=== PATIENT | male | born 1925 | race Caucasian/White ===

== ENCOUNTER 2017-01-10 23:07 | Inpatient (IN) | payer MEDICARE, MEDICAID ==
[~2017-01-10] VITALS: Ht 170.2 cm; Wt 63.0 kg
[2017-01-11] MEDS ORDERED: SODIUM CHLORIDE 0.9% 1,000 ML IV ONE (00:17)
[2017-01-11] MEDS ORDERED: ONDANSETRON HCL 4MG/2ML VIAL IV STA (00:17)
[2017-01-11 01:05] LABS: HEMATOCRIT. 36.6 % (42.0-52.0); HEMOGLOBIN. 12.3 g/dL (14.0-18.0); MEAN CORPUSCULAR HEMOGLOBIN 29.2 pg (28.0-32.0); MEAN CORPUSCULAR VOLUME 86.8 fL (80.0-94.0); PLATELET 222 x1000/uL (130-400); RED BLOOD CELL COUNT 4.22 mill/uL (4.7-6.1); RED CELL DISTRIBUTION WIDTH 15.7 % (11.6-14.6)
[2017-01-11] MEDS ORDERED: MAGNESIUM/ALUMINUM HYDROXIDE/SIMETHICONE 30ML UDC PO PRN (01:15)
[2017-01-11] MEDS ORDERED: DIPHENHYDRAMINE 50MG/ML VIAL IV PRN (01:15)
[2017-01-11] MEDS ORDERED: LORAZEPAM 2MG/ML CPJ IV PRN (01:15)
[2017-01-11] MEDS ORDERED: IPRATROPIUM/ALBUTEROL 0.5-3(2.5)MG/3ML NEB INH PRN (01:15)
[2017-01-11] MEDS ORDERED: DOCUSATE SODIUM 100MG CAPSULE PO PRN (01:15)
[2017-01-11] MEDS ORDERED: NA PHOS,M-B/NA PHOS,DI-BA ENEMA 118ML PR PRN (01:15)
[2017-01-11] MEDS ORDERED: GUAIFENESIN 200MG/10ML SUGAR FREE UDC PO PRN (01:15)
[2017-01-11] MEDS ORDERED: ONDANSETRON HCL 4MG/2ML VIAL IV PRN (01:15)
[2017-01-11] MEDS ORDERED: CLONIDINE 0.1MG TABLET PO PRN (01:15)
[2017-01-11] MEDS ORDERED: HYDROCODONE/ACETAMINOPHEN 5/325MG TABLET PO PRN (01:15)
[2017-01-11] MEDS ORDERED: ACETAMINOPHEN 325MG TABLET PO PRN (01:15)
[2017-01-11 01:17] LABS: INR 1.4; PROTHROMBIN TIME 14.7 sec
[2017-01-11 01:19] LABS: CARBON DIOXIDE 32 mEq/L (21-32); CHLORIDE 101 mEq/L (98-107); TROPONIN I 0.07 ng/mL (0.00-0.04)
[2017-01-11 01:55] LABS: CLARITY URINE CLEAR (CLEAR); COLOR URINE DARK YELLOW (YELLOW); GLUCOSE URINE NEGATIVE (NEGATIVE); KETONES URINE TRACE (NEGATIVE); LEUKOCYTE ESTERASE URINE TRACE (NEGATIVE); NITRITE URINE NEGATIVE (NEGATIVE); OCCULT BLOOD URINE NEGATIVE (NEGATIVE); PROTEIN URINE NEGATIVE (NEGATIVE); SPECIFIC GRAVITY URINE 1.015 (1.005-1.030)
[2017-01-11 08:00] VITALS: BP 108/62
[2017-01-11 08:07] LABS: PLATELET ESTIMATE NORMAL
[2017-01-11 09:00] VITALS: BP 106/92
[2017-01-11] MEDS: SODIUM CHLORIDE 0.45% 1,000 ML IV SCH ×2 (09:00→22:20)
[2017-01-11] MEDS: ENOXAPARIN 40MG/0.4ML SYR SUBCUT SCH (09:00)
[2017-01-11] MEDS ORDERED: DEXTROSE 50% WATER 50ML SYRINGE IV PRN (09:45)
[2017-01-11 12:00] VITALS: BP 113/58
[2017-01-11] MEDS: BLOOD SUGAR DIAGNOSTIC STRIP TEST SCH ×3 (12:20→21:15)
[2017-01-11] MEDS: INSULIN LISPRO 100 UNITS/ML SUBCUT SCH ×3 (12:43→21:00)
[2017-01-11] MEDS ORDERED: CIPR-263 PO (15:12)
[2017-01-11] MEDS ORDERED: LISI-186 PO (15:12)
[2017-01-11] MEDS ORDERED: CARV6.2548 PO (15:12)
[2017-01-11] MEDS ORDERED: AMOX125S8 PO (15:12)
[2017-01-11] MEDS ORDERED: FURO40TA5 PO (15:12)
[2017-01-11] MEDS ORDERED: AMIODARONE (15:12)
[2017-01-11] MEDS ORDERED: TAMS0.4C31 PO (15:12)
[2017-01-11] MEDS ORDERED: ASPI-1159 PO (15:12)
[2017-01-11] MEDS ORDERED: AMIODARONE HCL PO (15:12)
[2017-01-11] MEDS ORDERED: ONDA8TAB6 PO (15:12)
[2017-01-11] MEDS ORDERED: METO-293 PO (15:12)
[2017-01-11] MEDS ORDERED: ATOR80TA PO (15:12)
[2017-01-11] MEDS ORDERED: OMEP20CA10 PO (15:12)
[2017-01-11] MEDS ORDERED: ONDANSETRON HCL 8MG TABLET PO SCH (15:45)
[2017-01-11] MEDS ORDERED: METOCLOPRAMIDE HCL 10MG TABLET PO PRN (15:45)
[2017-01-11] MEDS ORDERED: AMIODARONE HCL 200 MG PO SCH (15:45)
[2017-01-11 16:00] VITALS: BP 112/46
[2017-01-11] MEDS ORDERED: CIPROFLOXACIN HCL PO SCH (17:00)
[2017-01-11] MEDS ORDERED: POTASSIUM CHLORIDE INJ 40 MEQ in DEXT 5% WATER 250 ML IV NR (17:00)
[2017-01-11] MEDS ORDERED: LEVOFLOXACIN 500MG TABLET PO SCH (17:00)
[2017-01-11 20:00] VITALS: BP 105/65
[2017-01-11] MEDS: CARVEDILOL 6.25 MG TABLET PO SCH (20:20)
[2017-01-11] MEDS ORDERED: MEDICATION NOT ON FORMULARY EA (Atorvastatin Calcium (Lipitor) 1 TAB) PO SCH (21:00)
[2017-01-11] MEDS: AMIODARONE HCL 200 MG TABLET PO SCH (21:17)
[2017-01-11] MEDS: ATORVASTATIN CALCIUM 40MG TABLET PO SCH (21:25)
[2017-01-11] MEDS: AMOXICILLIN 500 MG CAPSULE PO SCH (21:25)
[2017-01-11] MEDS ORDERED: POTASSIUM CHLORIDE 20MEQ TABLET SR PO NR (21:45)
[2017-01-12] VITALS: BP 109/57
[2017-01-12 04:00] VITALS: BP 113/55
[2017-01-12] MEDS: AMIODARONE HCL 200 MG TABLET PO SCH ×3 (05:12→23:19)
[2017-01-12] MEDS: OMEPRAZOLE 20MG CAPSULE EXTENDED RELEASE PO SCH (06:26)
[2017-01-12] MEDS: BLOOD SUGAR DIAGNOSTIC STRIP TEST SCH ×4 (06:33→21:01)
[2017-01-12] MEDS: INSULIN LISPRO 100 UNITS/ML SUBCUT SCH ×4 (07:50→21:00)
[2017-01-12 08:00] VITALS: BP 101/43
[2017-01-12] MEDS ORDERED: AMOXICILLIN 125 MG/5 ML 100 ML BOTTLE PO SCH (09:00)
[2017-01-12] MEDS: FUROSEMIDE 40MG TABLET PO SCH (09:00)
[2017-01-12] MEDS: LISINOPRIL 5MG TABLET PO SCH (09:00)
[2017-01-12] MEDS: CARVEDILOL 6.25 MG TABLET PO SCH ×2 (09:00→20:59)
[2017-01-12] MEDS: AMOXICILLIN 500 MG CAPSULE PO SCH ×2 (10:17→20:59)
[2017-01-12] MEDS: ASPIRIN 81MG EC TABLET PO SCH (10:20)
[2017-01-12] MEDS: ENOXAPARIN 40MG/0.4ML SYR SUBCUT SCH (10:23)
[2017-01-12] MEDS: SODIUM CHLORIDE 0.45% 1,000 ML IV SCH (11:40)
[2017-01-12 12:00] VITALS: BP 102/63
[2017-01-12] MEDS ORDERED: ONDANSETRON HCL 4MG TABLET PO PRN (15:45)
[2017-01-12 16:00] VITALS: BP 118/68
[2017-01-12] MEDS: LEVOFLOXACIN 250MG TABLET PO SCH (17:21)
[2017-01-12 20:33] VITALS: BP 111/61
[2017-01-12] MEDS ORDERED: TAMSULOSIN HCL 0.4MG SR CAPSULE PO SCH (21:00)
[2017-01-12] MEDS: ATORVASTATIN CALCIUM 40MG TABLET PO SCH (21:01)
[2017-01-13] VITALS (7 sets, daily range): BP systolic 90–130; BP diastolic 49–74
[2017-01-13] MEDS: SODIUM CHLORIDE 0.45% 1,000 ML IV SCH ×2 (01:00→14:20)
[2017-01-13] MEDS: AMIODARONE HCL 200 MG TABLET PO SCH ×2 (06:00→13:41)
[2017-01-13 06:24] LABS: HEMATOCRIT. 34.9 % (42.0-52.0); MEAN CORPUSCULAR HEMOGLOBIN 29.7 pg (28.0-32.0); MEAN CORPUSCULAR VOLUME 86.5 fL (80.0-94.0); MEAN PLATELET VOLUME 8.6 fl (7.4-10.4); PLATELET 218 x1000/uL (130-400); RED BLOOD CELL COUNT 4.03 mill/uL (4.7-6.1); RED CELL DISTRIBUTION WIDTH 16.4 % (11.6-14.6)
[2017-01-13] MEDS: OMEPRAZOLE 20MG CAPSULE EXTENDED RELEASE PO SCH (07:10)
[2017-01-13] MEDS: BLOOD SUGAR DIAGNOSTIC STRIP TEST SCH ×3 (07:10→17:20)
[2017-01-13] MEDS: INSULIN LISPRO 100 UNITS/ML SUBCUT SCH ×3 (07:50→17:50)
[2017-01-13 09:52] LABS: PLATELET ESTIMATE NORMAL
[2017-01-13] MEDS: FUROSEMIDE 40MG TABLET PO SCH (09:58)
[2017-01-13] MEDS: CARVEDILOL 6.25 MG TABLET PO SCH (09:58)
[2017-01-13] MEDS: LISINOPRIL 5MG TABLET PO SCH (09:58)
[2017-01-13] MEDS: AMOXICILLIN 500 MG CAPSULE PO SCH (09:58)
[2017-01-13] MEDS: ASPIRIN 81MG EC TABLET PO SCH (09:59)
[2017-01-13] MEDS: ENOXAPARIN 40MG/0.4ML SYR SUBCUT SCH (10:01)
[2017-01-13] MEDS: LEVOFLOXACIN 250MG TABLET PO SCH (12:47)
[2017-01-13] MEDS ORDERED: POTASSIUM CHLORIDE 20MEQ TABLET SR PO NR (14:45)
[2017-01-14] MEDS ORDERED: FAMOTIDINE 20MG TABLET PO SCH (09:00)
== END 2017-01-13 20:26 | disposition home or self-care (01) | DRG 640 ==
LOC: ER 23:16 → 6EST 01-11 01:15 → 6WST 01-11 14:43
PROVIDERS: ADMIT Internal Medicine; ATTEND Internal Medicine
DX: E86.0 Dehydration (principal); G93.40 Encephalopathy, unspecified; E43 Unspecified severe protein-calorie malnutrition; R65.11 Systemic inflammatory response syndrome (SIRS) of non-infectious origin with acute organ dysfunction; I13.0 Hypertensive heart and chronic kidney disease with heart failure and stage 1 through stage 4 chronic kidney disease, or unspecified chronic kidney disease; I42.9 Cardiomyopathy, unspecified; E11.42 Type 2 diabetes mellitus with diabetic polyneuropathy; I25.10 Atherosclerotic heart disease of native coronary artery without angina pectoris; N18.9 Chronic kidney disease, unspecified; G89.4 Chronic pain syndrome; E78.5 Hyperlipidemia, unspecified; E11.319 Type 2 diabetes mellitus with unspecified diabetic retinopathy without macular edema; E11.22 Type 2 diabetes mellitus with diabetic chronic kidney disease; I50.9 Heart failure, unspecified; F03.90 Unspecified dementia, unspecified severity, without behavioral disturbance, psychotic disturbance, mood disturbance, and anxiety; E78.00 Pure hypercholesterolemia, unspecified; D72.829 Elevated white blood cell count, unspecified; K76.0 Fatty (change of) liver, not elsewhere classified; E87.6 Hypokalemia; E87.8 Other disorders of electrolyte and fluid balance, not elsewhere classified; R91.8 Other nonspecific abnormal finding of lung field; F41.9 Anxiety disorder, unspecified; K59.00 Constipation, unspecified; Z79.4 Long term (current) use of insulin; Z79.899 Other long term (current) drug therapy; Z86.73 Personal history of transient ischemic attack (TIA), and cerebral infarction without residual deficits; Z68.21 Body mass index [BMI] 21.0-21.9, adult
CPT/HCPCS: 36415; 71010; 76700; 80048; 80053; 80076; 81001; 82962; 83605; 83690; 84484; 85025; 85610; 87040; 87086; 93005; 96361; 96374; 99285; C1893; J1650; J1815; J2405; J3480; J7030; J7060